=== PATIENT | female | born 2000 | race Caucasian/White ===

== ENCOUNTER 2022-11-03 19:40 | Emergency (ER) | payer SELFPAY ==
--- NOTE | ~2022-11-03 | XR_ITS ---
EXAMINATION: XR shoulder RT min 2V DATE: 11/03/2022 20:02 INDICATION: Right shoulder pain. TECHNIQUE: 4 views of right shoulder were obtained. COMPARISON: None. FINDINGS: Bone alignment is normal. No fracture. Joint spaces are normal. IMPRESSION: 1. Normal right shoulder. Reviewed, dictated and finalized at location E. IMPRESSION: 1. Normal right shoulder.
[2022-11-03 19:47] VITALS: BP 142/83; PULSE 90; RESP 14; TEMP 37; O2SAT 100
--- NOTE | 2022-11-03 21:27 | ED.UPPEXIN ---
HPI - Extremity Injury (Upper) General Chief Complaint: Extremity Injury, Upper <Maren Beal PA-C - Last Filed: 11/03/22 21:32> Stated Complaint: right shoulder pain x3 weeks <Maren Beal PA-C - Last Filed: 11/03/22 21:32> Time Seen by Provider: 11/03/22 20:38 <Maren Beal PA-C - Last Filed: 11/03/22 21:32> History of Present Illness HPI narrative: 22-year-old female reports for evaluation of right shoulder pain times a few weeks . Patient states she works at [employer] and uses her arms frequently and recalls lifting of heavy boxes overhead with sharp pains shooting from her shoulder down her arm. States sometimes its a dull ache and sometimes it is sharp shooting pain. The pain is located in the anterior posterior shoulder. She denies recent injury or trauma. Denies fever, paresthesias. <Maren Beal PA-C - Last Filed: 11/03/22 21:32> Related Data Allergies/Adverse Reactions: Allergies Allergy/AdvReac Type Severity Reaction Status Date / Time No Known Allergies Allergy Verified 11/03/22 19:41 <Maren Beal PA-C - Last Filed: 11/03/22 21:32> Review of Systems Review of Systems: CONSTITUTIONAL: Denies fever, chills EYES: Denies visual changes, redness, or discharge. ENT: Denies rhinorrhea, congestion, sore throat, or otalgia. CARDIOVASCULAR: Denies chest pain, palpitations, or edema. RESPIRATORY: Denies cough or dyspnea. GASTROINTESTINAL: Denies abdominal pain, nausea, vomiting, or diarrhea. GENITOURINARY: Denies dysuria or hematuria. SKIN: Denies rash or itching. MUSCULOSKELETAL: See HPI NEUROLOGIC: Denies headache, numbness, dizziness, or weakness. PSYCHIATRIC: Denies anxiety or depression. <Maren Beal PA-C - Last Filed: 11/03/22 21:32> Exam Narrative: GENERAL: Well-appearing, in no acute distress. HEAD: Normocephalic NECK: Supple. CHEST: No respiratory distress. Clear to auscultation, no adventitious breath sounds. HEART: Regular rate and rhythm. No murmur heard. Normal peripheral pulses. ABDOMEN: Soft, nontender, normal active bowel sounds. EXTREMITIES: RUE: Tenderness over the trapezius, AC joint, and biceps tendon. No warmth or effusion. Full range of motion of shoulder. Decreased strength with empty can and liftoff test. Sensation intact throughout. Radial, median and ulnar nerves intact. Radial pulse 2+. Cap refill less than 2. SKIN: Warm, dry, no rash. NEURO: No focal deficits. Alert and oriented x3. PSYCH: Normal mood and affect. <Maren Beal PA-C - Last Filed: 11/03/22 21:32> Course BATT PACKER/PA Physician Supervision This is a was performed by both a physician and an APC. I performed all aspects of the MDM as documented w/ the following additions: 22-year-old presenting with shoulder pain. X-rays negative. Patient discharged on trial Motrin Tylenol.All questions answered. Patient in agreement w/ disposition. <Gian Bolivar MD - Last Filed: 11/10/22 19:09> Vital Signs Vital signs: Vital Signs Temperature 98.6 F 11/03/22 19:47 Pulse Rate 90 11/03/22 19:47 Respiratory Rate 14 11/03/22 19:47 Blood Pressure 142/83 H 11/03/22 19:47 Pulse Oximetry 100 11/03/22 19:47 Temperature 98.6 F 11/03/22 19:47 Pulse Rate 76 11/03/22 21:49 Respiratory Rate 18 11/03/22 21:49 Blood Pressure 138/76 11/03/22 21:49 Pulse Oximetry 98 11/03/22 21:49 <Maren Beal PA-C - Last Filed: 11/03/22 21:32> Vital Signs Temperature 98.6 F 11/03/22 19:47 Pulse Rate 90 11/03/22 19:47 Respiratory Rate 14 11/03/22 19:47 Blood Pressure 142/83 H 11/03/22 19:47 Pulse Oximetry 100 11/03/22 19:47 Temperature 98.6 F 11/03/22 19:47 Pulse Rate 76 11/03/22 21:49 Respiratory Rate 18 11/03/22 21:49 Blood Pressure 138/76 11/03/22 21:49 Pulse Oximetry 98 11/03/22 21:49 <Gian Bolivar MD - Last Filed: 11/10/22 19:09> MDM - Extremity Injury (U
[2022-11-03 21:49] VITALS: BP 138/76; PULSE 76; RESP 18; O2SAT 98
== END 2022-11-03 21:50 | disposition home or self-care (01) ==
PROVIDERS: Emergency Provider Physician Assistant
DX: S46.911A Strain of unspecified muscle, fascia and tendon at shoulder and upper arm level, right arm, initial encounter (principal); X50.0XXA Overexertion from strenuous movement or load, initial encounter; Y99.0 Civilian activity done for income or pay
CPT/HCPCS: 73030; 99283